=== PATIENT | male | born 1950 | race Caucasian/White ===

== ENCOUNTER → 2016-12-01 | Outpatient (CLI) | payer MEDICARE, OTHER ==
--- NOTE | 2016-12-01 13:43 | US ---
EXAMINATION TYPE: US scrotum with doppler. Grayscale and color Doppler Duplex imaging performed of lena mckeon scrotum. 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 EXAM MEASUREMENTS: TESTICLES: Right Testicle: 3.5 x 3.8 x 2.4 cm cm Left Testicle: 3.9 x 3.3 x 2.5 cm cm EPIDIDYMIS HEAD: Right Epididymis: 1.2 x 0.9 x 0.7 cm cm Left Epididymis: 1.3 x 1.1 x 1.0cm cm with epididymal cyst = 0.5 x 0.4 x 0.4 cm Doppler performed to assess for testicular vascularity; good bilateral color flow and waveforms are s een. There is no evidence of testicular torsion. Presence of hydroceles: yes, L>R Presence of varicoceles: no TECHNOLOGIST IMPRESSION: IMPRESSION: 1. No evidence for varicoceles. 2. Small left epididymal cyst. 3 bilateral hydroceles left greater than right.
== END ==
LOC: RADUSWWP 12:50
PROVIDERS: ATTEND Family Medicine
DX: N50.3 Cyst of epididymis (principal); N43.3 Hydrocele, unspecified
CPT/HCPCS: 76870; 93975

== ENCOUNTER 2024-07-10 08:40 | Day surgery (SDC) | payer MEDICARE, OTHER ==
[2024-07-08 13:57] VITALS: BMI 23.0
[~2024-07-10 08:40] MED LIST: LIDOCAINE 1% (10MG/ML) FOR IV START INTRADERMA PRN
[2024-07-10 09:28] VITALS: RESP 18; TEMP 98.1
[2024-07-10] MEDS: IV FLUID CONTINUATION 1,000 ML IV ONE (09:29)
[2024-07-10] MEDS: LACTATED RINGERS 1,000 ML IV SCH (09:29)
[2024-07-10] MEDS ORDERED: PROPOFOL 10 MG/ML 20 ML VIAL IV ONE (10:16)
--- NOTE | 2024-07-10 10:40 | P.PCN ---
Date of Procedure: 07/10/24 Procedure(s) Performed: BRIEF HISTORY: Patient is a 73-year-old pleasant white male scheduled for an elective colonoscopy as a part of screening for colon cancer. PROCEDURE PERFORMED: Colonoscopy with snare polypectomy. PREOPERATIVE DIAGNOSIS: Screening for colon cancer. IV sedation per Anesthesia. PROCEDURE: After informed consent was obtained, the patient, was brought into the endoscopy unit. IV sedation was administered by Anesthesia under continuous monitoring. Digital rectal examination was normal. Initially the Olympus CF-160 flexible video colonoscope was then inserted in the rectum, gradually advanced into the cecum without any difficulty. Careful examination was performed as the scope was gradually being withdrawn. Ileocecal valve and the appendiceal orifice were visualized and appeared normal. Prep was excellent. Mucosa of the cecum, ascending colon, appeared normal. The transverse colon there was a 5 mm x 2 polyps removed by cold snare polypectomy. Rest of the transverse colon, descending colon, sigmoid colon, and rectum appeared normal. In the rectosigmoid colon at 18 cm from anal verge there was a 1 cm pedunculated polyp that was removed by snare polypectomy. Retroflexion was performed in the rectum and no lesions were seen. The patient tolerated the procedure well. IMPRESSION: 5 mm x 2 transverse colon polyp status post cold snare polypectomy 1 cm rectosigmoid polyp status post snare polypectomy RECOMMENDATIONS: Findings of this examination were discussed with the patient as well as his family. He was advised from the biopsy results. If the biopsy was adenoma he can have repeat colonoscopy in 3 years..
[2024-07-10 11:06] VITALS: BP 115/74; PULSE 95
== END 2024-07-10 11:34 | disposition home or self-care (01) ==
LOC: ORWHC2ENDO 08:40
PROVIDERS: ATTEND Internal Medicine Gastroenterology
DX: Z12.11 Encounter for screening for malignant neoplasm of colon
CPT/HCPCS: 45385; 88305